=== PATIENT | male | born 1995 | race Caucasian/White ===

== ENCOUNTER 2017-07-07 21:39 | Emergency (ER) | payer MEDICAID, SELFPAY ==
[2017-07-07 21:41] VITALS: BP 143/87; PULSE 86; RESP 16; TEMP 36.6; O2SAT 97; BMI 19.3
--- NOTE | 2017-07-07 22:43 | ED.VISSUMM ---
- ER Visit Summary Date of Service: 07/07/17 Chief Complaint: Abdominal pain History of Present Illness: The patient is a 22 M started having left upper quadrant abdominal pain and the appearance of swelling that started 1.5-2 hours prior to evaluation. States discomfort is gone right now. He feels fine. Had a little nausea, no vomiting. Normal bowel movements lately. Last ate an hour or 2 prior to the onset of pain, he states nothing unusual. Denies having any history of abdominal surgeries. Physical Examination: Vital signs are normal. Well-appearing no distress. Abdomen soft nontender nondistended with normal bowel sounds present. No hernias. No surgical scars. The rest of the exam is unremarkable. Test Results: n/a Emergency Department Course and Treatment: Patient is wondering when he can get out of here. I do not think he needs further emergency workup for this. Likely some transient GI discomfort, unlikely to be anything life-threatening since it completely resolved and his abdomen is benign. Advised to try taking an antiacid first if it recurs prior to returning to the ER and he is fine with that. Treatment Plan: As above Disposition: Discharge home Impression: Left upper quadrant abdominal pain-resolved This note was generated with [employer] dictation software. It may contain incorrect words, spelling, and punctuation that were not noted in review of the chart prior to signing ED Disposition - Plan for ED Patient: Disposition: Home or Assisted Living Chief Complaint: Abd Pain Instructions: ED Abdominal Pain Unkn Cause Male Referrals: Juan Harding DO [Primary Care Provider] - As Needed Additional Instructions: Try Maalox or Mylanta if the pain recurs, prior to returning to the ER.
[2017-07-07 22:57] VITALS: BP 140/72; PULSE 82; RESP 18
== END 2017-07-07 22:57 | disposition home or self-care (01) ==
LOC: ED 22:47
PROVIDERS: Emergency Provider Emergency Medicine; Family Provider Pediatrics; PCP Pediatrics
DX: R10.12 Left upper quadrant pain (principal); M41.9 Scoliosis, unspecified; Z72.0 Tobacco use
CPT/HCPCS: 99282

== ENCOUNTER 2017-08-14 04:12 | Emergency (ER) | payer OTHER, MEDICAID, SELFPAY ==
[2017-08-14 04:13] VITALS: BP 137/91; PULSE 100; RESP 18; TEMP 36.4; O2SAT 99; BMI 19.6
--- NOTE | 2017-08-14 04:20 | RAD_ITS ---
STUDY: X-RAY - RIGHT HAND REASON FOR EXAM: Male, 22 years old. Status post fall. Pain in the thumb and first metacarpal. TECHNIQUE: 3 view(s) of the hand. COMPARISON: None. FINDINGS: Normal radiocarpal articulation. Normal distal radioulnar joint. Normal visualized carpal bones. Normal carpal articulations Normal carpometacarpal articulation of the thumb. Normal second through fifth carpometacarpal joints. There is an acute traumatic fracture through the posterior medial corner of the proximal first metacarpal with intra-articular involvement at the greater multangular-metacarpal articulation. There is rotatory displacement of the posteromedial bone fragment, with approximately 3 mm separation of bone at the articular surface. Normal metacarpophalangeal joint of the thumb. Normal interphalangeal joint of the thumb. Normal proximal and distal phalanges of the thumb. Normal metacarpophalangeal joints of the second through fifth fingers. Normal proximal and distal interphalangeal joints of the second through fifth fingers. Normal phalanges of the second through fifth fingers. The soft tissue structures are unremarkable. RAD/Hand Min 3 Views IMPRESSION: Mildly displaced fracture of the posteromedial corner of the proximal first metacarpal with intra-articular involvement at the carpal-metacarpal articulation. Electronically Signed: Rudolph Villa MD at 5:11 EDT , Service support ,
--- NOTE | 2017-08-14 05:21 | ED.DCSUM_ITS ---
- ER Visit Summary Date of Service: 08/14/17 Chief Complaint: [Injury right hand] History of Present Illness: The patient is a 22 M [presents to the emergency department with complaint of a fall that occurred about an hour and a half ago. Patient states that he tripped and fell injuring his right hand. Patient denies any other injuries. Patient is right-hand dominant.] Physical Examination: [HEENT-PERRLA, EOMI. Cranial nerves II through XII grossly intact. TMs clear. Mucous membranes moist. No adenopathy. Cardiovascular-regular rate and rhythm without murmur or ectopy Lungs-clear to auscultation, chest wall stable without crepitus or subcu emphysema Abdomen-normoactive bowel sounds, soft, nontender, no rebound or rigidity, no peritoneal signs. Extremities-intact ?4, normal range of motion, normal pulses. Right hand- patient has tenderness over the base of the thenar eminence and the base of the first metacarpal. There is soft tissue swelling noted. Patient has pain with range of motion flexion extension of the thumb. Neurovascularly intact distally. No open wounds noted. Test Results: [X-rays of the right hand obtained showed a fracture at the base of the first metacarpal with intra-articular involvement.] Emergency Department Course and Treatment: [Patient was placed in a thumb spica splint and was given a prescription for [place] for pain] Treatment Plan: [[place] for pain and follow-up with orthopedics within the next 3 -5 days.] Disposition: [Discharged to home in stable condition. Patient to ice and elevate the extremity.] Impression: [Right hand fracture first metacarpal] This note was generated with [employer] dictation software. It may contain incorrect words, spelling, and punctuation that were not noted in review of the chart prior to signing ED Disposition - Plan for ED Patient: Chief Complaint: Upper Extremity Injury Referrals: Juan Harding DO [Primary Care Provider] -
--- NOTE | 2017-08-14 05:23 | DCINST.ED_ITS ---
ED Disposition - Plan for ED Patient: Chief Complaint: Upper Extremity Injury Instructions: ED Fx Hand Closed Prescriptions: Hydrocodone Bitart/Apap 5-325 [[place] 5/325] 1 - 2 tab PO Q4H PRN PRN 5 Days #20 tab PRN Reason: Pain Referrals: Juan Harding DO [Primary Care Provider] - Yohannes Pizarro DO [STAFF PHYSICIAN] - 3-5 Days
[2017-08-14] MEDS: HYDROcodone Bitartrate/Apap 5/325 Tablet PO (05:33)
[2017-08-14 05:39] VITALS: BP 118/75; PULSE 99; O2SAT 96
== END 2017-08-14 05:40 | disposition home or self-care (01) ==
PROVIDERS: Emergency Provider Emergency Medicine; Family Provider Pediatrics; PCP Pediatrics
DX: S62.231A Other displaced fracture of base of first metacarpal bone, right hand, initial encounter for closed fracture (principal); W01.0XXA Fall on same level from slipping, tripping and stumbling without subsequent striking against object, initial encounter; Y93.89 Activity, other specified; Y92.89 Other specified places as the place of occurrence of the external cause; Y99.8 Other external cause status
CPT/HCPCS: 73130; 99283

== ENCOUNTER 2017-08-30 16:30 | Emergency (ER) | payer OTHER, MEDICAID, SELFPAY ==
[2017-08-30 16:31] VITALS: BP 127/57; PULSE 69; RESP 16; TEMP 36.6; O2SAT 98; BMI 17.8
--- NOTE | 2017-08-30 18:34 | ED.VISSUMM ---
- ER Visit Summary Date of Service: 08/30/17 Chief Complaint: Right thumb pain History of Present Illness: The patient is a 22 M who had surgery 10 days ago for fractured right first metacarpal, by Dr. Lindsay in [place]. He has been having increasing pain since then. He states it bled some, and at one point he accidentally got the splint soaking wet. He is attempted to contact him, however has had little luck and so came to the ER make sure there is not a problem. He has a plaster fabricated splint on, he is scheduled to see Ortho in 2 days and was advised to unwrap and rewrap it, but otherwise not to take it off. No fevers or systemic symptoms although since the surgery he has had numbness in his right thumb. Physical Examination: Grossly neurovascularly intact distally throughout the right fingertips including the thumb. Brisk cap refill. Vital signs unremarkable no acute distress. After removing the plaster splint and all of the padding, there are 2 K wires sticking out of the dorsal lateral aspect of the right first metacarpal. The sites are benign and there is iodine embedded strip gauze at the base of them, along with plastic yellow to protect the K wires. All compartments are soft. Skin exam is otherwise normal. No active bleeding or discharge from the K wire sites. Test Results: n/a Emergency Department Course and Treatment: After evaluating him, he was resting for 30-40 minutes prior to getting a new splint, he states the pain is much better now that everything is off. I placed new cotton padding and Webril over the K wires, followed by a volar thumb spica fiberglass splint that I fabricated from [facility]. On reevaluation, his neurovascular exam is stable, he still has the exact same paresthesias in his thumb that he has since surgery and he has a brisk cap refill. He states the splint feels comfortable. Advised to follow-up with Ortho as scheduled in 2 days. Treatment Plan: Follow-up orthopedics 2 days as scheduled Disposition: Discharge home Impression: Wound check Fabricated splint placement right forearm This note was generated with [employer] dictation software. It may contain incorrect words, spelling, and punctuation that were not noted in review of the chart prior to signing ED Disposition - Plan for ED Patient: Disposition: Home or Assisted Living Chief Complaint: Wound Check Instructions: ED Wound Check Post Op No Infec Referrals: Juan Harding DO [Primary Care Provider] - Lavelle Lindsay [Other] (as scheduled in 2d)
[2017-08-30 18:41] VITALS: BP 118/74; PULSE 69; RESP 15; O2SAT 99
== END 2017-08-30 18:41 | disposition home or self-care (01) ==
PROVIDERS: Emergency Provider Emergency Medicine; Family Provider Pediatrics; PCP Pediatrics
DX: M79.644 Pain in right finger(s) (principal); Z48.01 Encounter for change or removal of surgical wound dressing; Z98.890 Other specified postprocedural states
CPT/HCPCS: 29125; 99282

== ENCOUNTER 2017-09-10 21:31 | Emergency (ER) | payer MEDICAID, SELFPAY ==
[2017-09-10 21:32] VITALS: BP 109/87; PULSE 78; RESP 18; TEMP 37.1; O2SAT 98; BMI 18.5
--- NOTE | 2017-09-10 22:46 | ED.RN ---
CALLED FOR PATIENT X2. UNABLE TO LOCATE IN DEPARTMENT OR OUTSIDE.
== END 2017-09-10 22:46 | disposition left against medical advice (07) ==
LOC: ED 23:38
PROVIDERS: Emergency Provider Emergency Medicine; Family Provider Pediatrics; PCP Pediatrics
DX: M79.89 Other specified soft tissue disorders (principal)

== ENCOUNTER 2018-06-14 07:46 | Emergency (ER) | payer MEDICAID, SELFPAY ==
[2018-06-14 07:46] VITALS: BMI 19.3
[2018-06-14 07:47] VITALS: BP 124/91; PULSE 74; RESP 18; TEMP 36.4; O2SAT 100; BMI 19.2
[2018-06-14 07:51] VITALS: TEMP 36.4
--- NOTE | 2018-06-14 08:00 | RAD_ITS ---
STUDY: X-RAY - LEFT WRIST REASON FOR EXAM: Male, 23 years old. Pain following injury. TECHNIQUE: 3 view(s) of the wrist were obtained. COMPARISON: None. FINDINGS: Normal visualized distal radius and ulna. Normal radiocarpal articulation. Normal distal radioulnar articulation. Normal carpal bones. Normal carpal articulations. Normal carpometacarpal articulation of the thumb. Normal second through fifth carpometacarpal articulations. Normal visualized metacarpal bones. Dorsal soft tissue swelling. Laceration. RAD/Wrist min 3 Views IMPRESSION: Dorsal soft tissue swelling. Laceration. Electronically Signed: Jacques Barajas MD at 8:19 EST Tel [phone], Service support ,
[2018-06-14] MEDS: Diphth,Pertuss(Acell),Tet Vac 0.5 ML Vial IM (08:34)
[2018-06-14] MEDS: Amox/Clavulanate 875 MG Tablet PO (08:35)
--- NOTE | 2018-06-14 08:45 | ED.VISSUMM ---
- ER Visit Summary Date of Service: 06/14/18 Chief Complaint: Dog bite History of Present Illness: The patient is a 23 M who was bit in the left wrist by his dog. His dog is up-to-date with immunizations, but he is not. No other injuries or complaints. Physical Examination: 1 cm laceration to the ulnar side of his left wrist and a 1 cm laceration to the radial side of his left wrist. Small abrasion over the dorsal wrist. Neurovascular intact distally. Good range of motion. No laxity or deformities. Deep structures intact--the lacerations are only superficial. Test Results: X-rays negative for fracture or foreign body Emergency Department Course and Treatment: Tetanus updated. Patient will be treated with a course of Augmentin. I anesthetized the wounds, irrigated, explored them. No deep structures were involved. He is neurovascularly intact. Nothing to suggest joint involvement. X-rays negative. Wounds left open to minimize the risk of infection. He will be placed on Augmentin. Wounds were treated with bacitracin and dressed. Follow-up with primary care for recheck. Treatment Plan: As above Disposition: Discharge Impression: 1. Dog bite left wrist This note was generated with [employer] dictation software. It may contain incorrect words, spelling, and punctuation that were not noted in review of the chart prior to signing ED Disposition - Plan for ED Patient: Chief Complaint: Bite Referrals: Juan Harding DO [Primary Care Provider] -
--- NOTE | 2018-06-14 08:47 | ED.DEP ---
ED Disposition - Plan for ED Patient: Chief Complaint: Bite Instructions: ED Bite Dog Prescriptions: Amox/Clavulanate Tablet [Augmentin Tablet] 875 mg PO Q12H #20 tab Referrals: Juan Harding DO [Primary Care Provider] -
[2018-06-14 09:12] VITALS: TEMP 36.5
== END 2018-06-14 10:44 | disposition home or self-care (01) ==
PROVIDERS: Emergency Provider Emergency Medicine; Family Provider Pediatrics; PCP Pediatrics
DX: S60.872A Other superficial bite of left wrist, initial encounter (principal); Z23 Encounter for immunization; W54.0XXA Bitten by dog, initial encounter; Y93.89 Activity, other specified; Y92.009 Unspecified place in unspecified non-institutional (private) residence as the place of occurrence of the external cause; Y99.8 Other external cause status
CPT/HCPCS: 73110; 90471; 90715; 99283

== ENCOUNTER 2023-02-28 23:03 | Emergency (ER) | payer SELFPAY ==
[2023-02-28 23:04] VITALS: BP 123/87; PULSE 96; RESP 16; TEMP 36.3; BMI 22.1
[2023-02-28 23:07] VITALS: BP 123/87; PULSE 96; RESP 16; TEMP 36.3
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
--- NOTE | 2023-03-01 00:04 | CT_ITS ---
EXAM: CT HEAD WITHOUT INTRAVENOUS CONTRAST CLINICAL INDICATION: head trauma TECHNIQUE: Multiple axial images were obtained of the head without intravenous contrast. This CT exam was performed using one or more of the following dose reduction techniques: automated exposure control, adjustment of the mA and/or kV according to patient size, and/or use of iterative reconstruction technique. RADIATION DOSE: CTDIvol = 44.99 mGy, DLP = 812.98 mGy-cm COMPARISON: No relevant prior studies available. FINDINGS: BRAIN AND EXTRA-AXIAL SPACES: Unremarkable. No intra- or extra-axial hemorrhage. No evidence of acute infarct. No intracranial mass or mass effect. There is preservation of the breaux/white matter interface. Posterior fossa structures are unremarkable. Ventricles are appropriate for age. No hydrocephalus. Basal cisterns are patent. BONES/JOINTS: Unremarkable. No discrete lytic or blastic abnormalities. SOFT TISSUES: Minimal left posterior lateral scalp contusion. SINUSES: Unremarkable as visualized. Clear. MASTOID AIR CELLS: Unremarkable. Clear. ORBITS: Visualized globes, extraocular muscles, optic nerves and retrobulbar fat appear unremarkable. CT/Brain/Head without Contrast IMPRESSION: No acute findings in the head/brain. Electronically Signed: Irene Hernandez MD at 0:50 EDT ,
[2023-03-01] MEDS: Lidocaine 1% (20 ml mdv) 20 ML Vial 5 ML INFILT (01:02)
== END 2023-03-01 01:17 | disposition home or self-care (01) ==
PROVIDERS: Emergency Provider Emergency Medicine; Visit Provider Emergency Medicine
DX: S01.91XA Laceration without foreign body of unspecified part of head, initial encounter (principal); S06.0X0A Concussion without loss of consciousness, initial encounter; F17.210 Nicotine dependence, cigarettes, uncomplicated; F12.90 Cannabis use, unspecified, uncomplicated; X58.XXXA Exposure to other specified factors, initial encounter
CPT/HCPCS: 70450; 99282

== ENCOUNTER 2023-05-31 12:01 | Emergency (ER) | payer SELFPAY ==
[2023-05-31 12:02] VITALS: BP 121/83; PULSE 71; RESP 16; TEMP 36.3; O2SAT 98; BMI 22.3
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
[2023-05-31] MEDS: Lidocaine 1% /Epi 1:100 (20ml) 20 ML Vial INFILT (13:14)
--- OUTSIDE RECORDS SUMMARY | 2023-05-31 13:36 | XMS RPT_ITS | CCD ---
Author Name Unknown Address [address] [place] [address] Organization [facility] Care Team Providers Care Singer Back Tender Name Role Phone Lavelle Lindsay Unavailable Unavailable PROVIDER, UNKNOWN Unavailable Unavailable Juan Harding Unavailable Unavailable Lavelle Lindsay Unavailable Unavailable PROVIDER, UNKNOWN Unavailable Unavailable Juan Harding Unavailable Unavailable Lavelle Lindsay Unavailable Unavailable PROVIDER, UNKNOWN Unavailable Unavailable Juan Harding Unavailable Unavailable ElsireKiley sheldon Unavailable Unavailable PROVIDER, UNKNOWN Unavailable Unavailable Juan Harding Unavailable Unavailable Lavelle Lindsay Unavailable Unavailable PROVIDER, UNKNOWN Unavailable Unavailable Juan Harding Unavailable Unavailable PROVIDER, UNKNOWN Attending Unavailable PROVIDER, UNKNOWN Admitting Unavailable Unavailable Primary Care Provider Unavailabl e Allergies Allergy Classification Reported Allergen(s) Allergy Type Date of Onset Reaction(s) Facility (1 source) SEASONAL IC; Translations: [SEASONAL IC] Propensity to adverse reactions to drug (disorder) 0 [facility] Repository (1 source) Mold Extract Drug Allergy 6 [facility] Work Phone: (1 source) environmental [Other] Propensity to adverse reactions 5 [facility] Work Phone: (1 source) Mildew Propensity to adverse reactions 6 [facility] Work Phone: Medications Current Medications Medication Drug Class(es) Dates Sig (Normalized) Sig (Original) amoxicillin 875 mg oral tablet (1 source) Penicillin-class Antibacterial Start: 11-07-2021 End: 11-14-2021 take 1 tablet by mouth twice daily amoxicillin (AMOXIL) 875 mg tablet Take 1 tablet by mouth twice daily for 7 days. 14 tablet 0 11/07/2021 11/14/2021 Active Completed/Discontinued Medications Medication Drug Class(es) Dates Sig (Normalized) Sig (Original) codeine phosphate 2 mg/ml / guaiFENesin 20 mg/ml oral solution (2 sources) Opioid Agonist Start: 07-01-2015 take 5-10 mL by mouth three times daily as needed for cough codeine-guaiFENesi n (ROBITUSSIN AC) 10-100 mg/5 mL syrup Indications: Viral URI with cough Take 5-10 mL by mouth three times daily as needed for Cough. May cause drowsiness. 60 mL 0 01/15/2017 Active Problems Active Problems Problem Classification Problem Date Documented Da te Episodic/Chronic Asthma (2 sources) Unspecified asthma, uncomplicated; Translations: [Unspecified asthma, uncomplicated] Onset: 08-20-2017 Chronic Otitis media and related conditions (1 source) Acute suppurative otitis media without spontaneous rupture of ear drum; Translations: [Acute suppurative otitis media without spontaneous rupture of ear drum, right ear] Episodic Past or Other Problems Problem Classification Problem Date Documented Date Episodic/Chronic Fracture of upper limb (8 sources) Other displaced fracture of base of first metacarpal bone, right hand, subsequent encounter for fracture with routine healing; Translations: [Unspecified fracture of first metacarpal bone, right hand, subsequent encounter for fracture with routine healing] Onset: 08-19-2017 Episodic Other nutritional; endocrine; and metabolic disorders (1 source) Constitutional delay of growth and puberty; Translations: [Unspecified lack of expected normal physiological development in childhood] Onset: 04-07-2011 04-07-2011 Episodic Results Test Name Value Interpretation Reference Range Facil ity Vital Signs Date Time Vital Sign Value Performing Clinician Colt crespo 11-07-2021 10:51-0400 Body temperature 99.3 [degF] Trudy Holt APRN.CNP Work Phone: [facility] 11-07-2021 10:51-0400 Body weight 67.13 kg Trudy Holt APRN.CNP Work Phone: [facility] 11-07-2021 10:51-0400 Diastolic blood pressure 74 mm[Hg] Trudy Holt APRN.CNP Work Phone: [facility] 11-07-2021 10:51-0400 Heart rate 79 /min Trudy Holt APRN.CNP Work Phone: [facility] 11-07-2021 10:51-0400 Respiratory rate 16 /min Trudy Holt APRN.CNP Work Phone: [facility] 11-07-2021 10:51-0400 SaO2% (BldA) [Mass fraction] 97 % Trudy Holt APRN.CNP Work Phone: [facility] 11-07-2021 10:51-0400 Systolic blood pressure 112 mm[Hg] Trudy Holt APRN.CNP Work Phone: [facility] Encounters Encounter Date Encounter Type Care Provider Facility Start: 11-07-2021 End: 11-07-2021 Patient encounter procedure Trudy Holt APRN.CNP Work Phone: [facility] Procedures Date Procedure Procedure Detail Performing Clinician Start: 10-05-2019 Antibody hiv-1&hiv-2 single result UNKNOWN PROVIDER Plan of Treatment Date Care Activity Detail Author Start: 01-29-2022 Influenza vaccination INFLUENZA (Sea son Ended) [facility] Start: 01-17-2020 Urine microalbumin profile DTA P,TDAP,TD (6 - Td or Tdap) [facility] Start: 2015 HEPATITIS C SCREENING HEPATITIS C CO HAZEL [facility] Start: 2015 HIV SCREENING HIV SCREENING [facility] Start: 2011 PEDS TO ADULT TRANSI TION ANNUAL ASSESSMENT PEDS TO ADULT TRANSITION ANNUAL ASSESSMENT [facility] Start: 2009 Adult depression scr eening assessment DEPRESSION SCREENING [facility] Start: 2009 PEDS TO ADULT TRANSI TION INITIAL DISCUSSION PEDS TO ADULT TRANSITION INITIAL DISCUSSION [facility] Start: 2007 MENINGOCOCCAL B: Con pl sql programmer based on risk (1 of 2 - Risk Bexsero 2-dose series) MENINGOCOCCAL B: Consider based on risk (1 of 2 - Risk Bexsero 2-dose series) [facility] Start: 2002 COVID-19 VACCINE (#1) COVID-19 VACCI NE (#1) [facility] Immunizations Immunization Date Immunization Notes Care Provider Kimberlee owens 12-28-2013 human papilloma viru s vaccine, quadrivalent Trudy Holt APRN.CNP Work Phone: [facility] 03-31-2013 human papilloma viru s vaccine, quadrivalent Trudy Holt APRN.DRUG INSPECTOR Work Phone: [facility] Work Phone: 03-31-2013 influenza virus vaccine, live, attenuated, for intranasal use Trudy Holt APRN.DRUG INSPECTOR Work Phone: [facility] Work Phone: 03-31-2013 Meningococcal, MCV4, unspecified conjugate formulation(groups A, C, Y and W-135) Trudy Holt APRN.DRUG INSPECTOR Work Phone: [facility] Work Phone: 03-02-2012 human papilloma viru s vaccine, quadrivalent Trudy Holt APRN.DRUG INSPECTOR Work Phone: [facility] 03-02-2012 influenza virus vaccine, live, attenuated, for intranasal use Trudy Holt APRN.DRUG INSPECTOR Work Phone: [facility] 03-02-2012 varicella virus vaccine Izzy Holt APRN.DRUG INSPECTOR Work Phone: [facility] 03-16-2011 influenza virus vaccine, live, attenuated, for intranasal use Trudy Holt APRN.DRUG INSPECTOR Work Phone: [facility] 01-16-2010 Meningococcal, MCV4, unspecified conjugate formulation(groups A, C, Y and W-135) Trudy Holt APRN.DRUG INSPECTOR Work Phone: [facility] 01-16-2010 tetanus toxoid, redu adrian diphtheria toxoid, and acellular pertussis vaccine, adsorbed Trudy Holt APRN.DRUG INSPECTOR Work Phone: [facility] 03-27-2005 influenza virus vaccine, unspecified formulation Trudy Holt APRN.DRUG INSPECTOR Work Phone: [facility] Work Phone: 10-11-2002 diphtheria, tetanus toxoids and acellular pertussis vaccine Trudy Holt APRN.DRUG INSPECTOR Work Phone: [facility] Work Phone: 10-11-2002 measles, mumps and rubella virus vaccine Trudy Holt APRN.DRUG INSPECTOR Work Phone: [facility] Work Phone: 10-11-2002 poliovirus vaccine, inactivated Trudy Holt APRN.DRUG INSPECTOR Work Phone: [facility] Work Phone: 07-16-1999 diphtheria, tetanus toxoids and acellular pertussis vaccine Trudy Holt APRN.DRUG INSPECTOR Work Phone: [facility] Work Phone: 07-16-1999 haemophilus influenz ae type b vaccine, HbOC conjugate Trudy Holt APRN.[facility] Work Phone: [facility] Work Phone: 07-16-1999 hepatitis B vaccine, pediatric or pediatric/adolescent dosage Trudy Holt APRN.[facility] Work Phone: [facility] Work Phone: 03-18-1998 hepatitis B vaccine, pediatric or pediatric/adolescent dosage Trudy Holt APRN.[facility] Work Phone: [facility] Work Phone: 03-18-1998 measles, mumps and rubella virus vaccine Trudy Hotl APRN.[facility] Work Phone: [facility] Work Phone: 03-18-1998 trivalent poliovirus vaccine, live, oral Trudy Holt APRN.DRUG INSPECTOR Work Phone: [facility] 03-18-1998 varicella virus vaccine Izzy Holt APRN.DRUG INSPECTOR Work Phone: [facility] Work Phone: 1997 diphtheria, tetanus toxoids and acellular pertussis vaccine Trudy Holt APRN.DRUG INSPECTOR Work Phone: [facility] Work Phone: 1997 haemophilus influenz ae type b vaccine, HbOC conjugate Trudy Holt APRN.DRUG INSPECTOR Work Phone: [facility] Work Phone: 1997 diphtheria, tetanus toxoids and acellular pertussis vaccine Trudy Holt APRN.DRUG INSPECTOR Work Phone: [facility] Work Phone: 1997 haemophilus influenz ae type b vaccine, HbOC conjugate Trudy Holt APRN.DRUG INSPECTOR Work Phone: [facility] Work Phone: 1997 trivalent poliovirus vaccine, live, oral Trudy Holt APRN.DRUG INSPECTOR Work Phone: [facility] 1997 hepatitis B vaccine, pediatric or pediatric/adolescent dosage Trudy Holt APRN.DRUG INSPECTOR Work Phone: [facility] Work Phone: Payers Date Payer Category Payer Unknown MMO MMO [employer] [id number] 2020-Present [phone] [address] [place] [address] O [id number] 2019 [employer] [id number] 1997 Unknown [id number] 1997 Unknown [id number] 1997 Unknown [id number] 1997 Unknown [id number] 1997 Unknown [id number] 1949 Unknown [id number] Unknown Social History Date Type Detail Facility Start: 07-21-2011 Tobacco smoking stat [facility] Never smoked tobacco [facility] Start: 07-21-2011 Tobacco use and exposure Smoke less tobacco non-user [facility] Start: 11-07-2021 Alcohol intake Current non-dr hopper attendant of alcohol (finding) [facility] Start: 07-21-2011 Tobacco Comment father outdoors [facility] Start: 1995 Sex Assigned At Not on file [facility] Start: 10-28-2021 End: 11-07-2021 Exposure to SARS-CoV-2 (event) Not sure [facility] Progress note 11-07-2021 Note Date & Type Note Facility 11-07-2021 Note HNO ID: [id number] Author: Trudy Holt APRN.DRUG INSPECTOR Service: ? Author Type: Nurse Practitioner Type: Progress Notes Filed: 11/07/2021 11:14 AM Note Text: CC: Patient presents with: Cough: cough and right ear pain x 1 day HPI: Marino Delaney is a 26 year old male who presents to the office with complaint of ear symptoms and rhinorrhea for the past day. Symptoms are worsening Associated symptoms includes ear pain. Denies fever, nausea, vomiting and diarrhea. Treatments tried include nothing so far. with no relief of symptoms. Sick contacts: unknown. History of asthma, frequent episodes of bronchitis, chronic bronchitis, bronchiectasis or COPD: No Smoker: No Seasonal/environmental allergies: No The ROS is otherwise negative. The patient's pmh, medications, allergies, and past visits are reviewed. PHYSICAL EXAM: BP 112/74 Pulse 79 Temp 37.4 ?C (99.3 ?F) (Tympanic) Resp 16 Wt 67.1 kg (148 lb) SpO2 97% General appearance: alert, cooperative, pleasant, in no acute distress Head: Normocephalic Eyes: EOM's intact, conjunctiva pink and moist, no icterus, sclera white, non-injected Ears: Right ear: External ear/canal- Normal, TM - erythematous, bulging. Left ear: External ear/canal- Normal, TM - clear with good landmarks Oropharynx:moist without lesions, No erythema, exudates or tonsillar hypertrophy. Heart: Negative. RRR without obvious murmur, gallop, or rubs. No ectopy. Lungs: clear to auscultation, without rales or wheeze, good air exchange PAST MEDICAL HISTORY Diagnosis Date - Unspecified asthma(493.90) 08/30 PAST SURGICAL HISTORY Procedure Laterality Date - TONSILLECTOMY AND ADENOIDECTOMY ALLERGIES Environmental [Other], Mildew, and Mold MEDICATIONS amoxicillin (AMOXIL) 875 mg tablet Take 1 tablet by mouth twice daily for 7 days. codeine-guaiFENesin (ROBITUSSIN AC) 10-100 mg/5 mL syrup Take 5-10 mL by mouth three times daily as needed for Cough. May cause drowsiness. codeine-guaiFENesin (GUAIFENESIN AC) 10-100 mg/5 mL syrup Take 5 mL by mouth three times daily as needed. FAMILY HISTORY Problem Relation Age of Onset - other (melanoma [Other]) Maternal Grandmother at age 26 - Hypertension Maternal Grandfather Social History Tobacco Use - Smoking status: Passive Smoke Exposure - Never Smoker - Smokeless tobacco: Never Used - Tobacco comment: father outdoors Substance Use Topics - Alcohol use: No - Drug use: Yes Comment: in the past ASSESSMENT/PLAN: 1. Non-recurrent acute suppurative otitis media of right ear without spontaneous rupture of tympanic membrane - ICD9: 382.00, ICD10: H66.001 Prescription instructions reviewed with patient as applicable. Amoxicillin bid for 7 days. Potential red flag symptoms discussed with the patient. Reviewed appropriate action plan to take if red flag symptoms occur. Patient agreeable to treatment plan. Trudy Holt APRN.NOA [facility] Instructions 11-07-2021 Patient Instructions Note Date & Type Note Facility 11-07-2021 Instructions Trudy Holt APRN.[facility] - 11/07/2021 11:08 AM EDT Ear Infection The inside or outside of your ear can become infected. If your outer ear or ear canal is swollen and infected, you have an outer ear infection. Your ear may itch or be red and swollen. Your ear may hurt or have drainage as well. This infection happens if germs enter your ears and cause a problem. This is more likely to happen if you have a wound in your ear. It can also happen if there is something in your ear or if your ear is wet for a long time. You may have signs a few days after swimming. This is why outer ear infections are often called swimmers ear. Long-term outer ear infections may be caused by: Allergic reaction Skin problems, such as eczema or psoriasis Chronic middle ear infections What care is needed at home? Ask your doctor what you need to do when you go home. Make sure you ask questions if you do not understand what the doctor says. This way you will know what you need to do. Take your drugs as ordered by your doctor. Be sure to treat an infection right away. This will help to keep it from spreading to other parts of your ear. Heat may help ease your ear pain. If your doctor tells you to use heat, put a heating pad or hot water bottle on your ear for no more than 20 minutes at a time. Never go to sleep with a heating pad on as this can cause ortiz. What follow-up care is needed? Your doctor may ask you to make visits to the office to check on your progress. Be sure to keep these visits. What problems could happen? Very bad infection Hearing problems What can be done to prevent this health problem? Keep your ears dry: Use a bathing cap or ear plugs when swimming. Use a towel to dry your ears when they are wet. Do not swim in dirty or polluted water. Avoid getting soap or other items in your ears. Do not scratch your ears. Do not put swabs or other objects in your ears. When do I need to call the doctor? Signs of infection. These include a fever of 100.4 F (38 C) or higher, chills, very bad sore throat, ear or sinus pain. Signs get worse You feel pain and there is redness of the bone behind your ear Drugs you are taking are not working for you Health problem is not better or you are feeling worse Helpful tips Talk to your doctor to see if there are drops you can use to help prevent the growth of germs. Outer ear infections are not contagious, but need treatment. documented in this encounter [facility] History of Present illness Narrative 11-07-2021 Trudy Holt APRN.NOA - 11/07/2021 11:04 AM EDT Note Date & Type Note Facility 11-07-2021 History of Presen t illness Narrative CC: Patient presents with: Cough: cough and right ear pain x 1 day HPI: Marino Delaney is a 26 year old male who presents to the office with complaint of ear symptoms and rhinorrhea for the past day. Symptoms are worsening Associated symptoms includes ear pain. Denies fever, nausea, vomiting and diarrhea. Treatments tried include nothing so far. with no relief of symptoms. Sick contacts: unknown. History of asthma, frequent episodes of bronchitis, chronic bronchitis, bronchiectasis or COPD: No Smoker: No Seasonal/environmental allergies: No The ROS is otherwise negative. The patient's pmh, medications, allergies, and past visits are reviewed. PHYSICAL EXAM: BP 112/74 Pulse 79 Temp 37.4 C (99.3 F) (Tympanic) Resp 16 Wt 67.1 kg (148 lb) SpO2 97% General appearance: alert, cooperative, pleasant, in no acute distress Head: Normocephalic Eyes: EOM's intact, conjunctiva pink and moist, no icterus, sclera white, non-injected Ears: Right ear: External ear/canal- Normal, TM - erythematous, bulging. Left ear: External ear/canal- Normal, TM - clear with good landmarks Oropharynx:moist without lesions, No erythema, exudates or tonsillar hypertrophy. Heart: Negative. RRR without obvious murmur, gallop, or rubs. No ectopy. Lungs: clear to auscultation, without rales or wheeze, good air exchange PAST MEDICAL HISTORY Diagnosis Date Unspecified asthma(493.90) 08/30 PAST SURGICAL HISTORY Procedure Laterality Date TONSILLECTOMY & ADENOIDECTOMY <AGE 14 05/31 ALLERGIES Environmental [Other], Mildew, and Mold MEDICATIONS amoxicillin (AMOXIL) 875 mg tablet Take 1 tablet by mouth twice daily for 7 days. codeine-guaiFENesin (ROBITUSSIN AC) 10-100 mg/5 mL syrup Take 5-10 mL by mouth three times daily as needed for Cough. May cause drowsiness. codeine-guaiFENesin (GUAIFENESIN AC) 10-100 mg/5 mL syrup Take 5 mL by mouth three times daily as needed. FAMILY HISTORY Problem Relation Age of Onset other (melanoma [Other]) Maternal Grandmother at age 26 Hypertension Maternal Grandfather Social History Tobacco Use Smoking status: Passive Smoke Exposure - Never Smoker Smokeless tobacco: Never Used Tobacco comment: father outdoors Substance Use Topics Alcohol use: No Drug use: Yes Comment: in the past ASSESSMENT/PLAN: 1. Non-recurrent acute suppurative otitis media of right ear without spontaneous rupture of tympanic membrane - ICD9: 382.00, ICD10: H66.001 Prescription instructions reviewed with patient as applicable. Amoxicillin bid for 7 days. Potential red flag symptoms discussed with the patient. Reviewed appropriate action plan to take if red flag symptoms occur. Patient agreeable to treatment plan. Trudy Holt APRN.DRUG INSPECTOR documented in this encounter [facility] Evaluation note Note Date & Type Note Facility documented in this encounter [facility] Summary Purpose Family History No Family History Records FoundNo Family History Records FoundNo Family History Records Found Advance Directives No Advanced Directives Records FoundNo Advanced Directives Records FoundNo Advanced Directives Records Found Additional Source Comments (unrecognized sect ion and content) No Status Records FoundNo Status Records FoundNo Status Records Found INFORMATION SOURCE (unrecogn ized section and content) DATE CREATED AUTHOR AUTHOR'S ORGANIZ ATION 07/02/2021 [facility] DATE CREATED AUTHOR AUTHOR'S ORGANIZ ATION 11/08/2021 [facility] Source Comments (unrecognize d section and content) In the event this informatio n is protected by the Federal Confidentiality of Alcohol and Drug Abuse Patient Records regulations: The Federal rules restrict any use of the information to criminally investigate or prosecute any alcohol or drug abuse patient.[facility] Reason for Visit (unrecogniz ed section and content) FOR RECORDS PERTAINING TO PATIENTS WHO ARE OR HAVE BEEN ENROLLED IN A CHEMICAL DEPENDENCY/SUBSTANCEABUSE PROGRAM, SOME INFORMATION MAY BE OMITTED. This clinical summary was aggregated from multiple sources. Caution should be exercised in using it in the provision of clinical care. This summary normalizes information from multiple sources, and as a consequence, information in this document may materially change the coding, format and clinical context of patient data. In addition, data may be omitted in some cases. CLINICAL DECISIONS SHOULD BE BASED ON THE PRIMARY CLINICAL RECORDS. [employer] [facility]. provides no warranty or guarantee of the accuracy or completeness of information in this document.
== END 2023-05-31 13:37 | disposition home or self-care (01) ==
LOC: ED 13:34
PROVIDERS: Emergency Provider Emergency Medicine; Visit Provider Emergency Medicine
DX: S01.81XA Laceration without foreign body of other part of head, initial encounter (principal); F17.210 Nicotine dependence, cigarettes, uncomplicated; V89.2XXA Person injured in unspecified motor-vehicle accident, traffic, initial encounter
CPT/HCPCS: 12013; 99283